=== PATIENT | male | born 1960 | race Caucasian/White ===

== ENCOUNTER 2020-01-04 14:11 | Emergency (ER) | payer BC, OTHER ==
[2020-01-04] MEDS ORDERED: XYLOCAINE 1% HCL 20 ML MDV ONE (14:31)
[2020-01-04 14:53] VITALS: O2SAT 97
[2020-01-04] MEDS ORDERED: XYLOCAINE 1% HCL 20 ML MDV IJ ONE (14:54)
[2020-01-04] MEDS ORDERED: Adacel Vial IM ONE ×2 (14:55→14:57)
--- NOTE | 2020-01-04 15:01 | ERPHSYRPT ---
- History of Present Illness Time Seen by Provider: 01/04/20 14:56 Source: patient Exam Limitations: no limitations Patient Subjective Stated Complaint: Finger injury/laceration Triage Nursing Assessment: Patient ambulated back to ED and transferred self to bed. Patient A+O X3. Patient's skin pink, warm and dry. Patient complains of laceration to left hand, 4th digit while he was fixing his cell maker and the deck cut his finger. Laceration noted to left hand, 4th digit 2cm X 0.5cm. Patient complains of pain /. Physician History: Finger injury/laceration 4th digit distal phalynx, left finger Patient complains of laceration to left hand, 4th digit while he was fixing his cell maker and the deck cut his finger. Laceration noted to left hand, 4th digit 2cm X 0.5cm. Occurred: just prior to arrival Method of Injury: incised Quality: constant Severity of Pain-Max: moderate Severity of Pain-Current: moderate Extremities Pain Location: 4th finger: left Modifying Factors: Improves With: nothing Associated Symptoms: none Allergies/Adverse Reactions: No Known Drug Allergies Allergy (Unverified 01/04/20 14:26) Hx Tetanus, Diphtheria Vaccination/Date Given: Yes Hx Influenza Vaccination/Date Given: No Hx Pneumococcal Vaccination/Date Given: No Immunizations Up to Date: Yes Travel Risk - International Travel Have you traveled outside of the country in past 3 weeks: No Have you or anyone close to you been diagnosed with or: No Do your reside in a community with a known COVID-19 case?: Yes If Yes where:: [facility] - Coronavirus Screening Has patient experienced Coronavirus symptoms: No - Review of Systems Constitutional: No Symptoms Eyes: No Symptoms Ears, Nose, & Throat: No Symptoms Respiratory: No Symptoms Cardiac: No Symptoms Abdominal/Gastrointestinal: No Symptoms Skin: Other (laceration on left finger) - Past Medical History Pertinent Past Medical History: No Neurological History: No Pertinent History ENT History: No Pertinent History Cardiac History: No Pertinent History Respiratory History: No Pertinent History Endocrine Medical History: No Pertinent History Musculoskeletal History: No Pertinent History GI Medical History: No Pertinent History History: No Pertinent History Psycho-Social History: No Pertinent History Male Reproductive Disorders: No Pertinent History 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 - Past Surgical History Past Surgical History: No Neuro Surgical History: No Pertinent History Cardiac: No Pertinent History Respiratory: No Pertinent History Gastrointestinal: No Pertinent History Genitourinary: No Pertinent History Musculoskeletal: No Pertinent History Male Surgical History: No Pertinent History Other Surgical History: Left ear repair - Social History Smoking Status: Never smoker Exposure to second hand smoke: Yes Drug Use: none Patient Lives Alone: No - Nursing Vital Signs Nursing Vital Signs: Initial Vital Signs Temperature 97.7 F 01/04/20 14:27 Pulse Rate 56 L 01/04/20 14:27 Respiratory Rate 18 01/04/20 14:27 Blood Pressure 131/64 01/04/20 14:27 O2 Sat by Pulse Oximetry 97 01/04/20 14:27 Pain Scale Pain Intensity 3 - Physical Exam General Appearance: no apparent distress Eyes, Ears, Nose, Throat Exam: normal ENT inspection Neck Exam: normal inspection Abdominal Exam: non-tender Hand Exam: laceration (left 4th finger, distal phalynx) SpO2: 97 Procedures - Laceration/Wound Repair Left Finger Wound Location: Left (4th finger) Wound Length (cm): 2 Wound's Depth, Shape: superficial, irregular, nail-avulsed Wound Explored: clean Irrigated: Yes Hibiclens Prep: Yes Anesthesia: local, 1% Lidocaine Volume Anesthetic (ccs): 5 Wound Debrided: minimal Wound Repaired With: sutures Suture Size/Type: 4-0, nylon Number of Sutures: 5 Layer Closure?: No Sterile Dressing Applied?: Yes - Course Nursing assessment & vital signs reviewed: Yes Ordered Tests: Active Orders 24 hr Category Date Time Status Wound Care STAT Care 01/04/20 14:22 Active Medication Summary Generic Name Dose Route Start Last Admin Trade Name Freq PRN Reason Stop Dose Admin Diphtheria/Tetanus/Acell Pertussis 0.5 ml 01/04/20 14:55 Adacel Vial IM 01/04/20 14:56 .ONCE ONE Lidocaine HCl 5 ml 01/04/20 14:54 Xylocaine 1% Hcl 20 Ml Mdv IJ 01/04/20 14:55 STAT ONE Discontinued Medications Generic Name Dose Route Start Last Admin Trade Name Freq PRN Reason Stop Dose Admin Lidocaine HCl Confirm 01/04/20 14:31 Xylocaine 1% Hcl 20 Ml Mdv Administered 01/04/20 14:32 Dose 5 ml .ROUTE .STK-MED ONE - Progress Progress: improved Counseled pt/family regarding: diagnosis, need for follow-up (wound check in 3 days next Monday) - Departure Departure Disposition: Home Clinical Impression: Laceration of left index finger w/o foreign body w/o damage to nail Qualifiers: Encounter type: initial encounter Qualified Code(s): S61.211A - Laceration without foreign body of left index finger without damage to nail, initial encounter Condition: Stable Critical Care Time: No Referrals: KAREN DAILY MD [Primary Care Provider] - Instructions: Laceration Repair With Stitches (DC), Wound Care (DC) Additional Instructions: Come to ER for wound check on Monday to ER. Discharge/Care Plan MICHELLE LYNN was seen on 01/04/20 in the Emergency Room. The patient was counseled regarding Diagnosis,Lab results, Imaging studies, need for follow up and when to return to the Emergency Room. Prescriptions given: Discharge Note I have spoken with the patient and/or caregivers. I have explained the patient' s condition, diagnosis and treatment plan based on the information available to me at this time. I have answered the patient's and/or caregiver's questions and addressed any concerns. The patient and/or caregivers have as good understanding of the patient's diagnosis, condition and treatment plan as can be expected at this point. The vital signs have been stable. The patient's condition is stable and appropriate for discharge from the emergency department. The patient will pursue further outpatient evaluation with the primary care physician or other designated or consulting physician as outlined in the discharge instructions. The patient and/or caregivers are agreeable to this plan of care and follow-up instructions have been explained in detail. The patient and/or caregivers have received these instruction. The patient/and or caregivers are aware that any significant change in condition or worsening of symptoms should prompt an immediate return to this or the closest emergency department or call 911. Prescriptions: Amoxicillin 500 mg PO TID #30 tablet Naproxen 500 mg [Naprosyn 500 MG] 500 mg PO BIDAC #30 tablet
[2020-01-04 15:09] VITALS: BP 135/82; PULSE 60
== END 2020-01-04 15:06 | disposition home or self-care (01) ==
LOC: ED 14:11
DX: S61.315A Laceration without foreign body of left ring finger with damage to nail, initial encounter (principal); W31.89XA Contact with other specified machinery, initial encounter; Y93.H2 Activity, gardening and landscaping; Y92.89 Other specified places as the place of occurrence of the external cause; M25.542 Pain in joints of left hand
CPT/HCPCS: 12001; 90471; 90715; 96372; 99284

== ENCOUNTER 2022-07-03 11:27 | Emergency (ER) | payer BC ==
--- NOTE | 2022-07-03 11:50 | ERPHSYRPT ---
- History of Present Illness Time Seen by Provider: 07/03/22 11:44 Source: patient, family Exam Limitations: no limitations Physician History: pt had right hand caught in wood splitter and it mashed it against a metal plate. tender dorsum right hand with swelling - old fx 5th met as child. puncture wound right long finger prox phalanx last 2019. wound does not detract and hemostasis is achieved spontaneously, no blood thinners. No other injuries or symptoms today. Occurred: just prior to arrival Method of Injury: other (wood splitter) Quality: constant, sharpness Severity of Pain-Max: moderate Severity of Pain-Current: moderate Extremities Pain Location: hand: right Modifying Factors: Improves With: immobilization, movement Associated Symptoms: none Allergies/Adverse Reactions: No Known Drug Allergies Allergy (Verified 07/03/22 11:35) Hx Tetanus, Diphtheria Vaccination/Date Given: Yes Hx Influenza Vaccination/Date Given: No Hx Pneumococcal Vaccination/Date Given: No - Review of Systems Constitutional: No Fever, No Chills Eyes: No Symptoms Ears, Nose, & Throat: No Symptoms Respiratory: No Cough, No Dyspnea Cardiac: No Chest Pain, No Edema, No Syncope Abdominal/Gastrointestinal: No Abdominal Pain, No Nausea, No Vomiting, No Diarrhea Genitourinary Symptoms: No Dysuria Musculoskeletal: Injury, Joint Pain, Joint Swelling, No Back Pain, No Neck Pain Skin: No Rash Neurological: No Dizziness, No Focal Weakness, No Sensory Changes Psychological: No Symptoms Endocrine: No Symptoms Hematologic/Lymphatic: No Symptoms Immunological/Allergic: No Symptoms All Other Systems: Reviewed and Negative - Past Medical History Pertinent Past Medical History: No Neurological History: No Pertinent History ENT History: No Pertinent History Cardiac History: No Pertinent History Respiratory History: No Pertinent History Endocrine Medical History: No Pertinent History Musculoskeletal History: No Pertinent History GI Medical History: No Pertinent History History: No Pertinent History Psycho-Social History: No Pertinent History Male Reproductive Disorders: No Pertinent History 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 - Past Surgical History Past Surgical History: No Neuro Surgical History: No Pertinent History Cardiac: No Pertinent History Respiratory: No Pertinent History Gastrointestinal: No Pertinent History Genitourinary: No Pertinent History Musculoskeletal: No Pertinent History Male Surgical History: No Pertinent History Other Surgical History: Left ear repair - Social History Smoking Status: Never smoker Exposure to second hand smoke: Yes Drug Use: none Patient Lives Alone: No - Nursing Vital Signs Nursing Vital Signs: Initial Vital Signs Temperature 98 F 07/03/22 11:41 Pulse Rate 59 L 07/03/22 11:41 Respiratory Rate 19 07/03/22 11:41 Blood Pressure 132/71 07/03/22 11:41 O2 Sat by Pulse Oximetry 99 07/03/22 11:41 Pain Scale Pain Intensity 8 - Physical Exam General Appearance: no apparent distress, alert Eyes, Ears, Nose, Throat Exam: moist mucous membranes Neck Exam: non-tender, supple Cardiovascular/Respiratory Exam: chest non-tender, normal breath sounds, regular rate/rhythm, no respiratory distress Abdominal Exam: non-tender, No guarding Back Exam: normal inspection, No vertebral tenderness Shoulder Exam: normal inspection, non-tender, no evidence of injury, normal ROM Elbow/Forearm Exam: normal inspection, non-tender, no evidence of injury, normal ROM Wrist Exam: normal inspection, non-tender, no evidence of injury, normal ROM Hand Exam: abrasions, bone tenderness, ecchymosis, soft tissue tenderness, swelling DTR - Upper Extremity Exam: bicep (R): 2+, bicep (L): 2+, tricep (R): 2+, tricep (L): 2+ Neuro/Tendon Exam: normal sensation, normal motor functions, normal tendon functions, no evidence tendon injury Mental Status Exam: alert, oriented x 3, cooperative Skin Exam: normal color, warm, dry SpO2 Interpretation: normal O2 Delivery: Room Air Procedures - Incision and Drainage Time of Procedure: 12:28 Site: right 3rd finger Anesthesia: none requi I & D Procedure: hibiclens prep, sterile dressing applied, irrigated with normal saline Results: other (spinter removal) - Splinting Location of Splint: Right, Hand Type of Splint: Orthoglass Short Arm Splint Splint Applied By: ED Nurse Pre-Proc Neuro Vasc Exam: normal Post-Proc Neuro Vasc Exam: neurovascular intact, unchanged from pre-exam - Course Nursing assessment & vital signs reviewed: Yes - Radiology Exams Right Hand X-ray Interpretation: Reviewed by me, Non-displaced Fracture (right proximal 4th finger) Ordered Tests: Active Orders 24 hr Category Date Time Status HAND (MINIMUM 3 VIEWS) Stat Exams 07/03/22 11:50 Taken - Progress Progress: improved, re-examined Counseled pt/family regarding: diagnosis, need for follow-up, rad results - Departure Departure Disposition: Home Clinical Impression: superficial laceration right 3rd finger , splinter removal, fx right 4th f Condition: Good Critical Care Time: No Referrals: KAREN DAILY MD [Primary Care Provider] - Follow up/PCP as directed Instructions: Hand Fracture (DC), Finger Fracture (DC), Removal of Foreign Body in Skin Additional Instructions: see your Dr. tomorrow for orthopedic followup of fracture and hand injury and to recheck splinter removal site. Return meantime if any redness drainage, numbness or other concerns. Prescriptions: Mupirocin [Bactroban OINTMENT] 22 gm TP BID #1
[2022-07-03 12:56] VITALS: BP 149/80; PULSE 58; O2SAT 98
--- NOTE | 2022-07-03 18:49 | XRAY ---
Indication: Pain following trauma. Comparison: None 3 view right hand demonstrates nondisplaced fracture shaft of 4th proximal phalanx. Elsewhere osteopenia, old 5th metacarpal fracture, and ulnar vascular calcifications.
== END 2022-07-03 12:55 | disposition home or self-care (01) ==
LOC: ED 11:27
DX: S62.644A Nondisplaced fracture of proximal phalanx of right ring finger, initial encounter for closed fracture (principal); S61.222A Laceration with foreign body of right middle finger without damage to nail, initial encounter; W31.89XA Contact with other specified machinery, initial encounter; M79.641 Pain in right hand
CPT/HCPCS: 10120; 29125; 73130; 99283